=== PATIENT | female | born 1975 | race Caucasian/White ===

== ENCOUNTER 2024-03-17 09:09 | Outpatient (CLI) | payer MEDICARE, SELFPAY ==
[2024-03-17 09:52] LABS: Hematocrit 41.7 % (37.0-47.0); Hemoglobin 13.8 g/dL (12.0-15.0); Mean Corpuscular HGB Conc 33.1 g/dl (32-36); Mean Corpuscular Hemoglobin 29.9 pg (26-34); Mean Corpuscular Volume 90.3 fl (80-100); Mean Platelet Volume 12.7 fl (7.4-10.4); Platelet Count Result 244 k/mm3 (150-375); Red Blood Count 4.62 M/mm3 (4.2-5.4); Red Cell Distribution Width 12.7 % (11.5-14.5); White Blood Count 12.8 K/mm3 (4.5-10.0)
[2024-03-17 10:02] LABS: INR 2.8; Prothrombin Time 30.3 Seconds (11.1-14.7)
[2024-03-17 10:44] LABS: Alanine Aminotransferase 43 U/L (6-35); Albumin Level 4.3 g/dL (3.5-5.1); Alkaline Phosphatase 115 U/L (38-126); Anion Gap 10 mmol/L (4-12); Aspartate Amino Transferase 37 U/L (14-36); Bilirubin,Total 0.5 mg/dL (0.2-1.3); Blood Urea Nitrogen 13 mg/dL (7-17); Calcium 9.3 mg/dL (8.4-10.2); Carbon Dioxide 22 mmol/L (22-30); Chloride 107 mmol/L (98-107); Estimated Glomerular Filt Rate > 60; Glucose 216 mg/dL (65-110); Potassium 4.7 mmol/L (3.4-5.0); Sodium 139 mmol/L (137-145)
== END 2024-03-17 09:10 | disposition home or self-care (01) ==
LOC: ANHLAB 09:15
PROVIDERS: PCP Emergency Medicine; Visit Provider Nurse Practitioner
DX: K76.0 Fatty (change of) liver, not elsewhere classified (principal)
CPT/HCPCS: 36415; 80053; 85027; 85610

== ENCOUNTER 2024-10-01 10:31 | Outpatient (CLI) | payer MEDICARE, SELFPAY ==
--- OUTSIDE RECORDS SUMMARY | 2024-10-01 10:39 | XMS_ITS | Clinical Summary ---
Author Organization [facility] Address [address] [place] [address] Care Team Providers Care Dry Plasterer Helper Name Role Phone Kadi Tapia MD Primary Care Provider [phone] Allergies Active Allergy Reactions Criticality Noted Date Comments Shellfish Allergy Unknown High 03/16/2019 Sulfa Antibiotics Hives Medium 10/09/2016 Medications albuterol sulfate HFA 108 (90 Base) MCG/ACT inhaler Inhale 2 puffs into the lungs every 4 (four) hours as needed for Wheezing. Active aspirin 81 MG chewable tablet Chew 1 tablet (81 mg total) by mouth daily. Active carvedilol (COREG) 6.25 MG tablet Take 1 tablet (6.25 mg total) by mouth 2 (two) times daily. Active sacubitril-jose sartan (ENTRESTO) 24-26 MG tablet Take 1 tablet by mouth 2 (two) times daily. Active furosemide (LASIX) 40 MG tablet Take 1 tablet (40 mg total) by mouth daily. Active gabapentin (NEURONTIN) 300 MG capsule Take 1 capsule (300 mg total) by mouth nightly. Active metFORMIN ER (GLUCOPHAGE-XR ) 500 MG 24 hr tablet Take 1 tablet (500 mg total) by mouth see administration instructions. Take 1 tablet by mouth in the morning and 2 tablets by mouth in the evening. Active rosuvastatin (CRESTOR) 20 MG tablet Take 1 tablet (20 mg total) by mouth daily. Active spironolactone (ALDACTONE) 25 MG tablet Take 1 tablet (25 mg total) by mouth daily. Active traMADol (ULTRAM) 50 MG tablet Take 1 tablet (50 mg total) by mouth every 6 (six) hours as needed for Pain. Active traZODone (DESYREL) 50 MG tablet Take 1 tablet (50 mg total) by mouth nightly at bedtime. Active Blood Glucose Monitoring Suppl ([facility] TRUE METRIX GLUCOSE METER) w/Device Kit 1 Device by Does not apply route see administration instructions. Use as directed qday Active Glucose Blood ([facility] TRUE METRIX GLUCOSE STRIPS) test strip 1 strip by Other route as needed. Use as instructed Active TRUEplus Lancets 30G Misc 1 Device by Does not apply route daily. Active warfarin (COUMADIN) 5 MG tablet Take 1 tablet (5 mg total) by mouth see administration instructions. TAKE 1 TABLET BY MOUTH EVERY EVENING, EXCEPT ON SATURDAY, SATURDAY, SATURDAY, SATURDAY TAKE 0.5 TABLET Active busPIRone (BUSPAR) 5 MG tablet Take 1 tablet (5 mg total) by mouth 2 (two) times daily. Active VICTOZA 18 MG/3ML injection Victoza 2-Kristopher 0.6 mg/0.1 mL (18 mg/3 mL) pen injector 4 Active OZEMPIC, 0.25 OR 0.5 MG/DOSE, 2 MG/3ML injection (PEN) 5 Active Active Problems Problem Noted Date Diagnosed Date Lumbar spondylosis 05/26/2024 Congestive heart failure (CHF) ([facility]) 04/24/2024 Acute sinusitis 04/24/2024 Allergic rhinitis 04/24/2024 Asthma ([facility]) 04/24/2024 Abnormal perimenopausal bleeding 04/24/2024 Dyspnea 04/24/2024 Glucose intolerance (impaired glucose tolerance) 04/24/2024 Low back strain 04/24/2024 Bilateral knee pain 04/24/2024 On warfarin therapy 04/24/2024 Type 2 diabetes mellitus ([facility]) 04/2307/16/2019 Gastroparesis due to DM ([facility]) 2024 Vitamin D deficiency 04/23/2024 Hyperlipidemia 04/23/2024 Elevated glucose 04/23/2024 Bipolar disorder ([facility]) 04/23/2024 Anxiety 04/23/2024 Insomnia 04/23/2024 Migraine 04/23/2024 Myocardial infarction ([facility]) 04/23/19 Left bundle branch block 04/23/2024 Encounters Date Type Department Care Team Description 08/05/[address] [facility] [place] [address] [id number] Madyson Syed MD 08/04/[address] [facility] [place] [address] [phone] Nidia Dueñas RN Follow Up (/) 08/03/2024 11:00 AM CDT - 08/03/2024 11:[address] [facility] [place] [address] [id number] Madyson Syed MD BLOCK MEDIAL BRANCH LUMBAR [id number] 08/03/2024 10:17 AM CDT - 08/03/2024 11:21 AM CDT Hospital Encounter [facility] [place] [place] [address] [id number] Madyson Syed MD Discharge Disposition: Home or Self Care (Routine Discharge) 08/03/2024 10:09 AM CDT - 08/03/2024 10:16 AM [place] [address] Madyson Syed MD Discharge Disposition: Home or Self Care (Routine Discharge) 08/03/2024 Travel 08/03/[address] [facility] [place] [place] [address] [id number] Madyson Syed MD 07/13/2024 9:30 AM CDT Office Visit [facility] [place] [address] Thierry Contreras MD Tolle, Lisa C, PT Back Pain 07/13/2024 Travel from Last 3 Months Family History Relation Status Comments Brother Father Mother Social History Tobacco Use Types Packs/Day Years Used Date Smoking Tobacco: Never Smokeless Tobacco: Never Tobacco Cessation:Counseling Given: No Alcohol Use Standard Drinks/Week Comments Not Currently 0 (1 standard drink = 0.6 oz pur e alcohol) rarely Comments No Sex and Gender Information Value Date Recorded Sex Assigned at Female 04/30/2024 10:06 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 Legal Sex Female 2:24 PM CDT Gender Identity Not on file Sexual Orientation Not on file Last Filed Vital Signs Vital Sign Reading Time Taken Comments Blood Pressure 147/84 08/03/2024 11:10 AM CDT Pulse 65 08/03/2024 11:10 AM CDT Temperature 36.1 C (96.9 F) 08/03/2024 10:29 AM CDT Respiratory Rate 18 08/03/2024 11:1 0 AM CDT Oxygen Saturation 96% 08/03/2024 11: 10 AM CDT Inhaled Oxygen Concentration - - Weight 101.5 kg (223 lb 12.8 oz) 2024 10:29 AM CDT Height 165.1 cm (5' 5) 08/03/2024 10:2 9 AM CDT Body Mass Index 37.24 08/03/2024 10:29 AM CDT Plan of Treatment Upcoming Encounters Date Type Department Care Team (Latest Contact Info) Description 10/05/2024 9:20 AM CDT Hospital Encounter [facility] [place] [address] [phone] Madyson ySed MD [facility] [address] [facility] [place], [place] [id number] 10/05/2024 9:20 AM CDT - 10/05/2024 9:[address] [facility] Inter[facility] Management Center [place], [place] [id number] Madyson Syed MD [facility] [address] [place] [address] [id number] RADIOFREQUENCY LUMBAR L 4, 5, S1 Scheduled Procedures Name Priority Associated Diagnoses Date/Ti me RADIOFREQUENCY LUMBAR Lumbar spondylosis 10/05/2024 9:20 AM CDT Health Maintenance Due Date Last Done Comments ASCVD LDL 1973 Cervical Cancer Screening Pap Smear (Age 30 to 64) Every 3 Years 1973 Colorectal Cancer Screening Colonoscopy (10 Years) 1973 Kidney Health Evaluation 1973 Lipid Panel 1973 Annual Physical 01/31/1976 Diabetes: Retinopathy Eye Exam 1991 Hepatitis C 1991 Hepatitis B Vaccines (1 of 3 - 19+ 3-dose series) 01/31/1992 Cervical Cancer Screening Pap with HPV Testing (Age 30 to 64) Every 5 Years 2003 Cervical Cancer Screening with HPV 2003 Mammogram Screening 2013 Pneumococcal Vaccine: 50+ Years (2 of 2 - PPSV23) 12/08/2021 10/13/2021 Zoster Vaccines (1 of 2) 2023 COVID-19 Vaccine ( season) 2023 04/04/2022, 08/25/2021, 03/09/2021, Additional history exists PHQ-2 (Physician [place]) 03/04/2024 Hemoglobin A1C 10/21/2024 04/23/2024 DTaP, Tdap and Td Vaccines (2 - Td or Tdap) 10/14/2031 10/13/2021 Meningococcal B Vaccine Aged Out No l onger eligible based on patient's age to complete this topic Meningococcal Vaccine Aged Out No vick vinayak eligible based on patient's age to complete this topic RSV Immunizations Under 20 Months Aged Out No longer eligible based on patient's age to complete this topic Goals Goal Patient Goal Type Associated Problems Recent Progress Patient-Stated? Author Autogenera alyson Goal Care Plan Autogenerated Problem No Jeanna Herrera, sales executive insurance Procedure Name Priority Date/Time Associated Diagnosis Comments INJ PARAVERTEBRAL FACET JOINT W IMAGE SINGL 08/03/2024 10:50 AM CDT Lumbar spondylosis POCT GLUCOSE - DOCKED DEVICE Routine 08/03/2024 10:35 AM CDT XR PAIN CLINIC C-ARM Today 08/03/2024 10:20 AM CDT PROTHROMBIN TIME, FINGERSTICK Routine 08/03/2024 10:13 AM CDT Myocardial infarct (CMS/HCC HHS/HCC) HEMOGLOBIN, GLYCOSYLATED Routine 04/23/2024 from Last 3 Months or Most Recently Relevant to Health Maintenance Results * POCT glucose (08/03/2024 10:35 AM CDT) GLUCOSE POC 94 70 - 99 mg/dL 08/03/2024 10:38 AM CDT [facility] 08/03/2024 10:3 5 AM CDT us Madyson Syed MD POCT ORDERABLES - DEVICE Rosanne l Result [facility] [address] [id number], [place] [phone] * XR PAIN CLINIC C-ARM (08/03/2024 10:20 AM CDT) Narrative Radiology, Technologist - 08/03/2024 10:20 AM CDT This report does not contain a radiologist's interpretation. Please review associated procedure and/or operative report. us Madyson Syed MD GENERAL IMAGING Final Result * (ABNORMAL) PROTIME/INR, FINGERSTICK (08/03/2024 10:13 AM CDT) PROTIME WHOLE BLOOD 12.7(H) 9.6 - 12.2 SEC 08/03/2024 10:15 AM CDT [facility] INR WHOLE BLOOD 1.1 06/02/202 5 10:15 AM CDT [facility] Comment: Recommended INR Therapeutic Goals: 2.0-3.0 Routine Therapy 2.5-3.5 Mechanical Prosthetic Valves (High Risk) 3.0-4.0 Acute MT (to prevent Systemic Embolism) The INR is used only for patients on stable oral anticoagulant therapy. It makes no significant contribution to the diagnosis or treatment of patients whose Protime is prolonged for other reasons. TESTING PERFORMED ON POINT OF CARE TAMAR MeetmealsGUCHECK ANALYZER. NOTE: Heparin and Low molecular weight heparins can affect results at various INR levels. If patient is currently on these medications, an alternate method of coagulation testing is strongly recommended. 08/03/2024 10:1 3 AM CDT Madyson Syed MD LABORATORY Final Result [facility] [address] [place] [address], * HEMOGLOBIN, GLYCOSYLATED (04/23/2024) HGB A1C 7.2 % 04/23/2024 [facility] LABORATORY Final Res ult from Last 3 Months or Most Recently Relevant to Health Maintenance Additional Health Concerns Active Problems Noted Date Diagnosed Date Autogenerated Problem 08/05/2024 Insurance [employer] Care Teams Dry Plasterer Helper Relationship Specialty Start Date End Date Farroll, Kadi, MD [address] [place] [address] PCP - General EMERGENCY MEDICINE 04/30/24
--- OUTSIDE RECORDS SUMMARY | 2024-10-01 10:39 | XMS_ITS | Referral Summary ---
Author Organization [facility] [address] Address [address] [place] [address] Care Team Providers Care Distributor Publications Name Role Phone Kadi Tapia MD Primary Care Provider Allergies Active Allergy Reactions Criticality Noted Date Comments Sulfa (Sulfonamide Antibiotics) Hives Medium 10/2016 Medications albuterol HFA (PROVENTIL HFA,VENTOLIN HFA) 90 mcg/actuation inhaler Inhale 2 puffs every 6 (six) hours as needed for wheezing Active potassium chloride ER (KLOR-CON,K-DUR ) 10 mEq CR tablet Take 1 tablet/capsule (10 mEq total) by mouth daily. 60 tablet/capsu le 5 7 Active Additional Information Patient not taking.Reported on 10/29/2023 furosemide (LASIX) 20 mg tablet TAKE 1 TABLET(20 MG) BY MOUTH DAILY 30 tablet 8 Active furosemide (LASIX) 20 mg tablet TAKE 1 TABLET(20 MG) BY MOUTH DAILY 30 tablet 8 Active carvedilol (COREG) 6.25 mg tablet Take 1 tablet (6.25 mg total) by mouth 2 (two) times a day with meals. 60 tablet 1 8 Active lisinopril (PRINIVIL,ZESTR IL) 10 mg tabletIndicatio ns:Chronic systolic congestive heart failure (HCC) Take 1 tablet (10 mg total) by mouth daily. 30 tablet 1 8 Active Additional Information Patient not taking.Reported on 10/29/2023 Entresto 24-26 mg tablet Take 1 tablet by mouth 2 (two) times a day Active spironolactone (ALDACTONE) 25 mg tablet Take 1 tablet (25 mg total) by mouth daily Active warfarin (COUMADIN) 5 mg tablet TAKE 1 TABLET BY MOUTH EVERY EVENING, EXCEPT ON SAT, , SAT, SUN TAKE 1/2 TABLET Active aspirin 81 mg enteric coated tablet Take 1 tablet (81 mg total) by mouth daily Active gabapentin (NEURONTIN) 300 mg capsule Take 1 capsule (300 mg total) by mouth nightly Active metFORMIN XR (GLUCOPHAGE XR) 500 mg 24 hr tablet TAKE 2 TABLETS BY MOUTH DAILY WITH SUPPER Active Active Problems Problem Noted Date Diagnosed Date ICD (implantable cardioverter-defibrillator) in place 10/29/2023 Dilated cardiomyopathy 10/31/2016 Chronic systolic congestive heart failure 2016 Pulmonary hypertension 10/31/2016 Mild intermittent asthma 10/09/2016 LBBB (left bundle branch block) Social History Tobacco Use Types Packs/Day Years Used Date Smoking Tobacco: Never Smokeless Tobacco: Never Alcohol Use Standard Drinks/Week Comments No 0 (1 standard drink = 0.6 oz pur e alcohol) Comments Unknown Sex and Gender Information Value Date Recorded Sex Assigned at Not on file Legal Sex Female 11:43 AM CDT Gender Identity Not on file Sexual Orientation Not on file Last Filed Vital Signs Vital Sign Reading Time Taken Comments Blood Pressure 125/75 10/31/2023 10:48 AM CDT Pulse 91 10/31/2023 10:48 AM CDT Temperature - - Respiratory Rate 20 10/09/2016 11:4 4 AM CDT Oxygen Saturation 97% 10/31/2023 10: 48 AM CDT Inhaled Oxygen Concentration - - Weight 105.6 kg (232 lb 12.8 oz) 2023 12:58 PM CDT Height 165.1 cm (5' 5) 10/29/2023 12:5 8 PM CDT Body Mass Index 38.74 10/29/2023 12:58 PM CDT Plan of Treatment Not on file Medical Devices Implanted Type Area Rn Surgery Icu Device Identifier Shelf Expiration Date Model / Serial / Lot Biotronik Icd Ilivia 7 Hft Qp ICD Chest Wall Biotronik ILIVIA 7 HFT QP / / Biotronik Ra Lead Solia S 53 Lead Heart Biotronik SOLIA S 5 3 / / Biotronik Rv Leadplexa Pro S65 Lead Heart Biotronik PLEXA PRO S 65 / / Biotronik Lv Lead Sentus Pro Otw Qpl 85-49 Lead Heart Biotronik SENTUS PRO OTW QPL 85-49 / / [facility] [employer] CHOICE MEDICARE PPO Care Teams Distributor Publications Relationship Specialty Start Date End Date Kadi Tapia MD [address] [place] [address] PCP - General Emergency Medicine 10/29/23
--- OUTSIDE RECORDS SUMMARY | 2024-10-01 10:39 | XMS_ITS | Clinical Summary ---
Author Organization [facility] [address] Address [address] [place] [address] Care Team Providers Care Record Label Intern Name Role Phone Kadi Tapia MD Primary [...] TABLET BY MOUTH EVERY EVENING, EXCEPT ON TUE, THUR, SAT, SUN TAKE 1/2 TABLET Active aspirin [...] asthma 10/09/2016 LBBB (left bundle branch block) Surgical History Surgery Date Site/Laterality Comments TUBAL LIGATION Medical History Medical History Date Comments Asthma CHF (congestive heart failure) (HCC) LBBB (left bundle branch block) Family History Medical History Relation Name Comments Diabetes Father Kidney disease Father COPD Mother Relation Name Status Comments Father Mother Social History Tobacco Use Types [...] on file Sexual Orientation Not on file Obstetrics History Last Filed Vital Signs Vital Sign Reading [...] 10/29/2023 12:58 PM CDT Plan of Treatment Health Maintenance Due Date Last Done Comments Breast Cancer Screening-Mammogram 1973 Cervical Cancer Screening 1973 Colon Cancer Screening-Colonoscopy 1973 Depression Screening 1973 Hepatitis C Screening 1973 Hepatitis B Screening 1991 Regular Well Visit/Exam 18-64 1991 Pneumococcal vaccine <65 (2 of 2 - PPSV23) 12/08/2021 10/13/2021 Zoster Vaccine (1 of 2) 2023 Covid-19 Vaccine (6 - 2023-2 5 season) 2023 04/04/2022, 08/25/2021, 03/09/2021, Additional history exists Influenza Vaccine (#1) 2024 , 01/19/2021, 02/16/2020 DTaP/Tdap/Td Vaccine (2 - Td or Tdap) 10/14/2031 10/13/2021 Medical Devices Implanted Type Area Computer Project Manager Device Identifier Shelf Expiration Date Model / [...] PRO OTW QPL 85-49 / / Insurance [facility] [employer] CHOICE MEDICARE PPO [employer] CHOICE MEDICARE PPO Care Teams Record Label Intern Relationship Specialty Start Date End Date Kadi Tapia MD [address] [place] [id number] PCP - General Emergency Medicine 10/29/23
[2024-10-01 11:07] LABS: Hematocrit 41.4 % (37.0-47.0); Hemoglobin 13.4 g/dL (12.0-15.0); Mean Corpuscular HGB Conc 32.4 g/dl (32-36); Mean Corpuscular Hemoglobin 29.5 pg (26-34); Mean Corpuscular Volume 91.2 fl (80-100); Platelet Count Result 213 k/mm3 (150-375); Red Blood Count 4.54 M/mm3 (4.2-5.4); White Blood Count 7.3 K/mm3 (4.5-10.0)
[2024-10-01 11:31] LABS: INR 1.6; Prothrombin Time 18.6 Seconds (11.1-14.7)
[2024-10-01 11:33] LABS: Alanine Aminotransferase 35 U/L (6-35); Albumin Level 4.0 g/dL (3.5-5.1); Alkaline Phosphatase 87 U/L (38-126); Anion Gap 4 mmol/L (4-12); Aspartate Amino Transferase 32 U/L (14-36); Bilirubin,Total 0.8 mg/dL (0.2-1.3); Blood Urea Nitrogen 12 mg/dL (7-17); Calcium 9.4 mg/dL (8.4-10.2); Carbon Dioxide 31 mmol/L (22-30); Chloride 102 mmol/L (98-107); Estimated Glomerular Filt Rate > 60; Glucose 97 mg/dL (65-110); Potassium 3.9 mmol/L (3.4-5.0); Sodium 137 mmol/L (137-145); Total Protein 7.3 g/dL (6.3-8.2)
== END 2024-10-01 10:32 | disposition home or self-care (01) ==
PROVIDERS: PCP Emergency Medicine; Visit Provider Nurse Practitioner
DX: K76.0 Fatty (change of) liver, not elsewhere classified (principal); R79.89 Other specified abnormal findings of blood chemistry; E66.9 Obesity, unspecified; Z86.0100 Personal history of colon polyps, unspecified
CPT/HCPCS: 36415; 80053; 85027; 85610